=== PATIENT | female | born 1980 | race Caucasian/White ===

== ENCOUNTER 2017-06-10 12:03 | Emergency (ER) | payer BC ==
[2017-06-10] MEDS ORDERED: Sodium Chloride 0.9% 2.5 ML Syringe FLUSH PRN (12:33)
[2017-06-10] MEDS ORDERED: Ondansetron 4 MG/2 ML SDV IVPUSH ONE (12:33)
[2017-06-10] MEDS ORDERED: Sodium Chloride 0.9% 10 ML Syringe FLUSH PRN (12:33)
[2017-06-10] MEDS ORDERED: Sodium Chloride 0.9% 1,000 ML IV ONE ×2 (12:33→14:23)
--- NOTE | 2017-06-10 12:37 | EDM.PDOC ---
ED HPI GENERAL MEDICAL PROBLEM - General Chief Complaint: Abdominal Pain Stated Complaint: flank pain Time Seen by Provider: 06/10/17 12:18 Source of Information: Reports: Patient History Limitations: Reports: No Limitations - History of Present Illness INITIAL COMMENTS - FREE TEXT/NARRATIVE: History of present illness: []Patient started having sharp right flank pain this morning, now rating to right lower quadrant with sweats. Patient took Zofran at home. Review of systems: As per history of present illness and below otherwise all systems reviewed and negative. Past medical history: As per history of present illness and as reviewed below otherwise noncontributory. Surgical history: As per history of present illness and as reviewed below otherwise noncontributory. Social history: No reported history of drug or alcohol abuse. Family history: As per history of present illness and as reviewed below otherwise noncontributory. Physical exam: General: Well developed, well nourished in NAD HEENT: Atraumatic, normocephalic, pupils reactive, negative for conjunctival pallor or scleral icterus, mucous membranes moist, throat clear, neck supple, nontender, trachea midline. Lungs: Clear to auscultation, breath sounds equal bilaterally, chest nontender. Heart: S1S2, regular, negative for clicks, rubs, or JVD. Abdomen: Soft, nondistended, tender upper abdomen and right lower quadrant. Negative for masses or hepatosplenomegaly. Right costovertebral tenderness. Pelvis: Stable nontender. Genitourinary: Deferred. Rectal: Deferred. Extremities: Atraumatic, negative for cords or calf pain. Neurovascular unremarkable. Neuro: Awake, alert, oriented. Cranial nerves II through XII unremarkable. Cerebellum unremarkable. Motor and sensory unremarkable throughout. Exam nonfocal. Diagnostics: [] Therapeutics: [] Impression: [] Plan: [] Definitive disposition and diagnosis as appropriate pending reevaluation and review of above. Right Abdominal Pain Score (Numeric/FACES): 9 - Related Data Allergies Allergy/AdvReac Type Severity Reaction Status Date / Time ciprofloxacin [From Cipro] Allergy Hives Verified 11/16/15 00:38 ciprofloxacin HCl Allergy Hives Verified 11/16/15 00:38 [From Cipro] Home Meds: Home Meds Pantoprazole [ProTONIX] 40 mg PO DAILY 06/25/14 [History] Levonorgestrel [Mirena] 1 unit IUTERINE ONETIME 06/27/14 [History] Levothyroxine [Synthroid] 100 mcg PO ACBREAKFAST 11/16/15 [History] Nebivolol HCl [Bystolic] 20 mg PO DAILY 11/16/15 [History] Acetaminophen [Tylenol Extra Strength] 500 mg PO Q4H PRN #0 tablet 11/18/15 [Rx] Metoclopramide HCl [Reglan] 10 mg PO Q6H PRN #15 tablet 11/18/15 [Rx] Ondansetron [Zofran ODT] 4 mg PO Q4H PRN #30 tab.dis 11/18/15 [Rx] Amphetamine [Adzenys Xr-Odt] 18.8 mg DAILY 06/10/17 [History] Levomilnacipran Hydrochloride [Fetzima] 80 mg PO DAILY 06/10/17 [History] Tamsulosin HCl [Flomax] 0.4 mg PO DAILY #14 cap.er.24h 06/10/17 [Rx] Past Medical History Cardiovascular History: Reports: Hypertension Gastrointestinal History: Reports: GERD Psychiatric History: Reports: Anxiety, Depression Endocrine/Metabolic History: Reports: Hypothyroidism - Past Surgical History HEENT Surgical History: Reports: Oral Surgery GI Surgical History: Reports: Bariatric Procedure, Cholecystectomy Musculoskeletal Surgical History: Reports: Carpal Tunnel Social & Family History - Family History Family Medical History: Noncontributory HEENT: Reports: None Cardiac: Reports: High Cholesterol, Hypertension Respiratory: Reports: None GI: Reports: None : Reports: None OBGYN: Reports: Musculoskeletal: Reports: Osteoarthritis Neurological: Reports: None Psychiatric: Reports: None Endocrine/Metabolic: Reports: Hypothyroidism Hematologic: Reports: None Immunologic: Reports: None Dermatologic: Reports: Psoriasis Oncologic: Reports: Breast, Colon - Tobacco Use Smoking Status *Q: Never Smoker - Alcohol Use Days Per Week of Alcohol Use: 0 Number of Drinks Per Day: 0 Total Drinks Per Week: 0 - Recreational Drug Use Recreational Drug Use: No Drug Use in Last 12 Months: No ED ROS GENERAL - Review of Systems Review Of Systems: See Below (See history of present illness) ED EXAM, GI/ABD - Physical Exam Exam: See Below (See history of present illness) Course - Vital Signs Last Recorded V/S: Last Vital Signs Temp 97.9 F 06/10/17 12:34 Pulse 89 06/10/17 12:34 Resp 18 06/10/17 12:34 BP 149/74 H 06/10/17 12:34 Pulse Ox 100 06/10/17 12:34 - Orders/Labs/Meds Orders: Active Orders 24 hr Category Date Time Status HYDROmorphone [Dilaudid] Med 06/10/17 12:33 Active 0.5 mg IVPUSH Q1H PRN HYDROmorphone [Dilaudid] Med 06/10/17 12:58 Active 0.5 mg IVPUSH Q1H PRN Sodium Chloride 0.9% [Saline Flush] Med 06/10/17 12:33 Active 10 ml FLUSH ASDIRECTED PRN Sodium Chloride 0.9% [Saline Flush] Med 06/10/17 12:33 Active 2.5 ml FLUSH ASDIRECTED PRN Saline Lock Insert [OM.PC] Stat Oth 06/10/17 12:32 Ordered Medication Orders Hydromorphone HCl (Dilaudid) 0.5 mg IVPUSH Q1H PRN PRN Reason: Pain Last Admin: 06/10/17 14:35 Dose: 0.5 mg Admin: 06/10/17 12:48 Dose: 0.5 mg Hydromorphone HCl (Dilaudid) 0.5 mg IVPUSH Q1H PRN PRN Reason: Pain Last Admin: 06/10/17 13:04 Dose: 0.5 mg Sodium Chloride (Saline Flush) 10 ml FLUSH ASDIRECTED PRN PRN Reason: Keep Vein Open Last Admin: 06/10/17 12:53 Dose: 10 ml Sodium Chloride (Saline Flush) 2.5 ml FLUSH ASDIRECTED PRN PRN Reason: Keep Vein Open Last Admin: 06/10/17 12:53 Dose: 2.5 ml Labs: Laboratory Tests 06/10/17 06/10/17 06/10/17 Range/Units 12:49 12:49 13:30 WBC 10.68 (4.0-11.0) K/uL RBC 4.78 (4.30-5.90) M/uL Hgb 14.9 (12.0-16.0) g/dL Hct 44.4 (36.0-46.0) % MCV 92.9 (80.0-98.0) fL MCH 31.2 (27.0-32.0) pg MCHC 33.6 (31.0-37.0) g/dL RDW Std Deviation 42.2 (28.0-62.0) fl RDW Coeff of Curt 12 (11.0-15.0) % Plt Count 300 (150-400) K/uL MPV 10.70 (7.40-12.00) fL Neut % (Auto) 81.6 H (48.0-80.0) % Lymph % (Auto) 12.9 L (16.0-40.0) % [place] % (Auto) 5.1 (0.0-15.0) % Eos % (Auto) 0.2 (0.0-7.0) % Baso % (Auto) 0.2 (0.0-1.5) % Neut # (Auto) 8.7 H (1.4-5.7) K/uL Lymph # (Auto) 1.4 (0.6-2.4) K/uL [place] # (Auto) 0.5 (0.0-0.8) K/uL Eos # (Auto) 0.0 (0.0-0.7) K/uL Baso # (Auto) 0.0 (0.0-0.1) K/uL Nucleated RBC % 0.0 /100WBC Nucleated RBCs # 0 K/uL Sodium 141 (136-146) mmol/L Potassium 4.3 (3.5-5.1) mmol/L Chloride 106 (98-110) mmol/L Carbon Dioxide 24 (21-31) mmol/L BUN 23 (6.0-23.0) mg/dL Creatinine 1.0 (0.6-1.5) mg/dL Est Cr Clr Drug Dosing TNP Estimated GFR (MDRD) > 60.0 ml/min Glucose 122 H (60-110) mg/dL Calcium 9.7 (8.8-10.8) mg/dL Total Bilirubin 0.5 (0.1-1.5) mg/dL AST 22 (5-40) IU/L ALT 33 (8-54) IU/L Alkaline Phosphatase 100 (40-150) Total Protein 7.7 (6.0-8.0) g/dL Albumin 4.8 (3.5-5.0) g/dL Globulin 2.9 (2.0-3.5) g/dL Albumin/Globulin Ratio 1.7 (1.3-2.8) Lipase 10 (7-80) U/L Urine Color Urine Appearance Urine pH (5.0-8.0) Ur Specific Marshall (1.001-1.035) Urine Protein (NEGATIVE) mg/dL Urine Glucose (UA) (NEGATIVE) mg/dL Urine Ketones (NEGATIVE) mg/dL Urine Occult Blood (NEGATIVE) Urine Nitrite (NEGATIVE) Urine Bilirubin (NEGATIVE) Urine Ictotest Urine Urobilinogen (<2.0) EU/dL Ur Leukocyte Esterase (NEGATIVE) Urine RBC (0-2/HPF) Urine WBC (0-5/HPF) Ur Epithelial Cells (NONE-FEW) Urine Bacteria (NEGATIVE) Urine Mucus (NONE-MOD) Urine HCG, Qual NEGATIVE (NEGATIVE) 06/10/17 Range/Units 13:30 WBC (4.0-11.0) K/uL RBC (4.30-5.90) M/uL Hgb (12.0-16.0) g/dL Hct (36.0-46.0) % MCV (80.0-98.0) fL MCH (27.0-32.0) pg MCHC (31.0-37.0) g/dL RDW Std Deviation (28.0-62.0) fl RDW Coeff of Curt (11.0-15.0) % Plt Count (150-400) K/uL MPV (7.40-12.00) fL Neut % (Auto) (48.0-80.0) % Lymph % (Auto) (16.0-40.0) % [place] % (Auto) (0.0-15.0) % Eos % (Auto) (0.0-7.0) % Baso % (Auto) (0.0-1.5) % Neut # (Auto) (1.4-5.7) K/uL Lymph # (Auto) (0.6-2.4) K/uL [place] # (Auto) (0.0-0.8) K/uL Eos # (Auto) (0.0-0.7) K/uL Baso # (Auto) (0.0-0.1) K/uL Nucleated RBC % /100WBC Nucleated RBCs # K/uL Sodium (136-146) mmol/L Potassium (3.5-5.1) mmol/L Chloride (98-110) mmol/L Carbon Dioxide (21-31) mmol/L BUN (6.0-23.0) mg/dL Creatinine (0.6-1.5) mg/dL Est Cr Clr Drug Dosing Estimated GFR (MDRD) ml/min Glucose (60-110) mg/dL Calcium (8.8-10.8) mg/dL Total Bilirubin (0.1-1.5) mg/dL AST (5-40) IU/L ALT (8-54) IU/L Alkaline Phosphatase (40-150) Total Protein (6.0-8.0) g/dL Albumin (3.5-5.0) g/dL Globulin (2.0-3.5) g/dL Albumin/Globulin Ratio (1.3-2.8) Lipase (7-80) U/L Urine Color DARK YELLOW Urine Appearance CLOUDY Urine pH 6.5 (5.0-8.0) Ur Specific [place] 1.025 (1.001-1.035) Urine Protein 100 (NEGATIVE) mg/dL Urine Glucose (UA) NEGATIVE (NEGATIVE) mg/dL Urine Ketones 40 H (NEGATIVE) mg/dL Urine Occult Blood LARGE H (NEGATIVE) Urine Nitrite NEGATIVE (NEGATIVE) Urine Bilirubin SMALL H (NEGATIVE) Urine Ictotest NEGATIVE Urine Urobilinogen 1.0 (<2.0) EU/dL Ur Leukocyte Esterase NEGATIVE (NEGATIVE) Urine RBC 68-76 (0-2/HPF) Urine WBC 0-2 (0-5/HPF) Ur Epithelial Cells MODERATE (NONE-FEW) Urine Bacteria FEW (NEGATIVE) Urine Mucus LIGHT (NONE-MOD) Urine HCG, Qual (NEGATIVE) Meds: Medications Generic Name Dose Route Start Last Admin Trade Name Freq PRN Reason Stop Dose Admin Hydromorphone HCl 0.5 mg 06/10/17 12:33 06/10/17 14:35 Dilaudid IVPUSH 0.5 mg Q1H PRN Administration Pain Hydromorphone HCl 0.5 mg 06/10/17 12:58 06/10/17 13:04 Dilaudid IVPUSH 0.5 mg Q1H PRN Administration Pain Sodium Chloride 10 ml 06/10/17 12:33 06/10/17 12:53 Saline Flush FLUSH 10 ml ASDIRECTED PRN Administration Keep Vein Open Sodium Chloride 2.5 ml 06/10/17 12:33 06/10/17 12:53 Saline Flush FLUSH 2.5 ml ASDIRECTED PRN Administration Keep Vein Open Discontinued Medications Generic Name Dose Route Start Last Admin Trade Name Freq PRN Reason Stop Dose Admin Sodium Chloride 1,000 mls @ 999 mls/hr 06/10/17 12:33 06/10/17 12:48 Normal Saline IV 06/10/17 13:33 999 mls/hr .Bolus ONE Administration Sodium Chloride 1,000 mls @ 999 mls/hr 06/10/17 14:23 06/10/17 14:36 Normal Saline IV 06/10/17 15:23 999 mls/hr .Bolus ONE Administration Ketorolac Tromethamine 30 mg 06/10/17 12:58 06/10/17 13:04 Toradol IVPUSH 06/10/17 12:59 30 mg ONETIME ONE Administration Ondansetron HCl 4 mg 06/10/17 12:33 06/10/17 12:48 Zofran IVPUSH 06/10/17 12:34 4 mg ONETIME ONE Administration Tamsulosin HCl 0.4 mg 06/10/17 14:55 06/10/17 15:18 Flomax PO 06/10/17 14:56 0.4 mg ONETIME ONE Administration Departure - Departure Time of Disposition: 15:47 Disposition: Home, Self-Care 01 Condition: Good Clinical Impression: Ureterolithiasis - Discharge Information Prescriptions: Tamsulosin HCl [Flomax] 0.4 mg PO DAILY #14 cap.er.24h Referrals: Luke Mendoza MD [Primary Care Provider] - Forms: ED Department Discharge Additional Instructions: The following information is given to patients seen in the emergency department who are being discharged to home. This information is to outline your options for follow-up care. We provide all patients seen in our emergency department with a follow-up referral. The need for follow-up, as well as the timing and circumstances, are variable depending upon the specifics of your emergency department visit. If you don't have a primary care physician on staff, we will provide you with a referral. We always advise you to contact your personal physician following an emergency department visit to inform them of the circumstance of the visit and for follow-up with them and/or the need for any referrals to a consulting specialist. The emergency department will also refer you to a specialist when appropriate. This referral assures that you have the opportunity for follow-up care with a specialist. All of these measure are taken in an effort to provide you with optimal care, which includes your follow-up. Under all circumstances we always encourage you to contact your private physician who remains a resource for coordinating your care. When calling for follow-up care, please make the office aware that this follow-up is from your recent emergency room visit. If for any reason you are refused follow-up, please contact the [facility] Emergency Department at and asked to speak to the emergency department charge nurse. Percocet and Flomax as directed [facility] - Urology [address] [place] [id number] - My Orders Last 24 Hours: My Active Orders 06/10/17 12:32 Saline Lock Insert [OM.PC] Stat 06/10/17 12:33 HYDROmorphone [Dilaudid] 0.5 mg IVPUSH Q1H PRN Sodium Chloride 0.9% [Saline Flush] 10 ml FLUSH ASDIRECTED PRN Sodium Chloride 0.9% [Saline Flush] 2.5 ml FLUSH ASDIRECTED PRN 06/10/17 12:58 HYDROmorphone [Dilaudid] 0.5 mg IVPUSH Q1H PRN - Assessment/Plan Last 24 Hours: My Active Orders 06/10/17 12:32 Saline Lock Insert [OM.PC] Stat 06/10/17 12:33 HYDROmorphone [Dilaudid] 0.5 mg IVPUSH Q1H PRN Sodium Chloride 0.9% [Saline Flush] 10 ml FLUSH ASDIRECTED PRN Sodium Chloride 0.9% [Saline Flush] 2.5 ml FLUSH ASDIRECTED PRN 06/10/17 12:58 HYDROmorphone [Dilaudid] 0.5 mg IVPUSH Q1H PRN
[2017-06-10] MEDS: HYDROmorphone 1 MG/ML Syringe IVPUSH PRN ×3 (12:48→16:15)
[2017-06-10] MEDS ORDERED: HYDROmorphone 1 MG/ML Syringe IVPUSH PRN (12:58)
[2017-06-10] MEDS ORDERED: Ketorolac 30 MG/ML SDV IVPUSH ONE (12:58)
[2017-06-10 13:39] LABS: CHLORIDE,CL 106 mmol/L (98-110); SODIUM,NA 141 mmol/L (136-146)
--- NOTE | 2017-06-10 14:53 | CT ---
CT of the abdomen and pelvis without contrast. HISTORY: Pain TECHNIQUE: Axial CT images were obtained of the abdomen and pelvis without contrast. Coronal and sagi ttal reconstructions obtained. FINDINGS: The lung bases are clear, no pleural effusion. Trace focal fatty infiltration near the falciform ligament. The spleen, adrenal glands, and pancreas appear unremarkable for noncontrast examination. Cholecystectomy. There is no bulky retroperitoneal l ymphadenopathy. No abdominal ascites. Postsurgical changes noted secondary to gastric bypass. There is a 4 mm obstructing stone within the proximal right ureter with moderate proximal hydronephro sis. Punctate nonobstructing stone within the midpole of the left kidney. The large and small bowel are normal in caliber without evidence of obstruction. The appendix appears normal. There is no bulky pelvic lymphadenopathy. No free fluid. No free air. The urinary bladder ap pears normal. IUD in place within the uterus. The visualized osseous structures appear normal. IMPRESSION: 1. There is a 4 mm obstructing stone within the proximal right ureter with moderate proximal hydrone phrosis. 2. Punctate nonobstructing left renal stone. 3. Gastric bypass changes and cholecystectomy.
[2017-06-10] MEDS ORDERED: Tamsulosin 0.4 MG Cap.ER PO ONE (14:55)
[2017-06-10 16:38] VITALS: BP 119/82
--- NOTE | 2017-06-10 22:49 | CONS ---
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 Her white blood count is 10.68. Her serum creatinine is 1.0. Serum calcium is normal at 9.7. UA showed microscopic hematuria. No indication of UTI. She had a CT scan of abdomen and pelvis that showed 2 tiny stones of nonobstructive in the left kidney, one is 1 mm and the other one is less than that. The right kidney does not have any stones. The right upper ureter has a 3.7 mm partially obstructive ureteral stone. PHYSICAL EXAMINATION: The patient is alert and oriented. She does not appear to be in pain when I examined her. She has received Dilaudid in the emergency room. IMPRESSION: Right upper ureteral stone. PLAN: Treatment options were discussed with her on that includes watchful waiting to make sure she is comfortable. She can go home on pain medicine and Flomax. Second option, put a stent in and do ESWL later. Third option is do ureteroscopy with or without laser lithotripsy to remove the stone. She will decide what she wants done. HOOD / WADE /[id number]
== END 2017-06-10 16:25 | disposition home or self-care (01) ==
LOC: MW.ED 12:03
DX: N13.2 Hydronephrosis with renal and ureteral calculous obstruction (principal); I10 Essential (primary) hypertension; K21.9 Gastro-esophageal reflux disease without esophagitis; F32.9 Major depressive disorder, single episode, unspecified; E03.9 Hypothyroidism, unspecified; Z79.899 Other long term (current) drug therapy; Z88.1 Allergy status to other antibiotic agents; Z98.84 Bariatric surgery status; Z90.49 Acquired absence of other specified parts of digestive tract
CPT/HCPCS: 36415; 74176; 80053; 81001; 81025; 83690; 85025; 96361; 96374; 96375; 99284; A9270; J1170; J1885; J2405; J7040; 96376; 99285-25

== ENCOUNTER 2017-06-11 09:27 | Day surgery (SDC) | payer BC ==
[2017-06-11] MEDS ORDERED: Ondansetron 4 MG/2 ML SDV ONE (09:56)
[2017-06-11] MEDS ORDERED: Propofol 200 MG/20 ML SDV ONE (09:56)
[2017-06-11] MEDS ORDERED: Midazolam 1 MG/ML 2 ML SDV ONE (09:56)
[2017-06-11] MEDS ORDERED: fentaNYL 250 MCG/5 ML SDV ONE (09:56)
[2017-06-11] MEDS ORDERED: Lidocaine 2% 5 ML SDV ONE (09:56)
--- NOTE | 2017-06-11 10:12 | PCM.PREANE ---
Preanesthetic Assessment - Anesthesia/Transfusion/Family Hx Anesthesia History: Prior Anesthesia Without Reaction Other Type of Anesthesia Reaction Comment: some motion sickness, denies any known problem in past Family History of Anesthesia Reaction: No Transfusion History: No Prior Transfusion(s) Intubation History: Unknown - Review of Systems General: No Symptoms Pulmonary: No Symptoms Cardiovascular: Orthopnea Gastrointestinal: No Symptoms Neurological: No Symptoms Other: Reports: None - Physical Assessment Height: 1.63 m Weight: 64.864 kg ASA Class: 2 Mental Status: Alert & Oriented x3 Airway Class: Mallampati = 2 Dentition: Reports: Normal Dentition Thyro-Mental Finger Breadths: 3 Mouth Opening Finger Breadths: 3 ROM/Head Extension: Full Lungs: Clear to Auscultation, Normal Respiratory Effort Cardiovascular: Regular Rate, Regular Rhythm - Allergies Allergies/Adverse Reactions: Allergies Allergy/AdvReac Type Severity Reaction Status Date / Time ciprofloxacin [From Cipro] Allergy Hives Verified 06/11/17 09:55 ciprofloxacin HCl Allergy Hives Verified 06/11/17 09:55 [From Cipro] - Blood Blood Available: No - Anesthesia Plan Pre-Op Medication Ordered: None - Acknowledgements Anesthesia Type Planned: General Anesthesia Pt an Appropriate Candidate for the Planned Anesthesia: Yes Alternatives and Risks of Anesthesia Discussed w Pt/Guardian: Yes Pt/Guardian Understands and Agrees with Anesthesia Plan: Yes PreAnesthesia Questionnaire HEENT History: Reports: Other (See Below) Other HEENT History: wears glasses Cardiovascular History: Reports: Hypertension Respiratory History: Reports: None Gastrointestinal History: Reports: GERD Psychiatric History: Reports: Anxiety, Depression Endocrine/Metabolic History: Reports: Hypothyroidism - Past Surgical History Head Surgeries/Procedures: Reports: None HEENT Surgical History: Reports: Oral Surgery GI Surgical History: Reports: Bariatric Procedure, Cholecystectomy Musculoskeletal Surgical History: Reports: Carpal Tunnel - SUBSTANCE USE Smoking Status *Q: Never Smoker Second Hand Smoke Exposure: No Days Per Week of Alcohol Use: 0 Number of Drinks Per Day: 0 Total Drinks Per Week: 0 Recreational Drug Use History: No - HOME MEDS Home Medications: Home Meds Pantoprazole [ProTONIX] 40 mg PO DAILY 06/25/14 [History] Levonorgestrel [Mirena] 1 unit IUTERINE ONETIME 06/27/14 [History] Levothyroxine [Synthroid] 100 mcg PO ACBREAKFAST 11/16/15 [History] Nebivolol HCl [Bystolic] 20 mg PO DAILY 11/16/15 [History] Acetaminophen [Tylenol Extra Strength] 500 mg PO Q4H PRN #0 tablet 11/18/15 [Rx] Metoclopramide HCl [Reglan] 10 mg PO Q6H PRN #15 tablet 11/18/15 [Rx] Ondansetron [Zofran ODT] 4 mg PO Q4H PRN #30 tab.dis 11/18/15 [Rx] Amphetamine [Adzenys Xr-Odt] 18.8 mg PO DAILY 06/10/17 [History] Levomilnacipran Hydrochloride [Fetzima] 80 mg PO DAILY 06/10/17 [History] Tamsulosin HCl [Flomax] 0.4 mg PO DAILY #14 cap.er.24h 06/10/17 [Rx] - CURRENT (IN HOUSE) MEDS Current Meds: Current Medications Discontinued Medications Fentanyl (Sublimaze) Confirm Administered Dose 250 mcg .ROUTE .STK-MED ONE Stop: 06/11/17 09:57 Lidocaine (Xylocaine-Mpf 2%) Confirm Administered Dose 5 ml .ROUTE .STK-MED ONE Stop: 06/11/17 09:57 Midazolam HCl (Versed 1 Mg/Ml) Confirm Administered Dose 2 mg .ROUTE .STK-MED ONE Stop: 06/11/17 09:57 Ondansetron HCl (Zofran) Confirm Administered Dose 4 mg .ROUTE .STK-MED ONE Stop: 06/11/17 09:57 Propofol (Diprivan 20 Ml) Confirm Administered Dose 200 mg .ROUTE .STK-MED ONE Stop: 06/11/17 09:57
[2017-06-11] MEDS ORDERED: fentaNYL 100 MCG/2 ML SDV IVPUSH PRN (10:29)
[2017-06-11] MEDS ORDERED: Succinylcholine/Normal Saline 200 MG/10 ML Syringe ONE (10:53)
[2017-06-11] MEDS ORDERED: Rocuronium 10 MG/ML 10 ML Syringe ONE (10:53)
[2017-06-11] MEDS ORDERED: Iopamidol 408 MG/ML 50 ML SDV ONE (11:11)
[2017-06-11] MEDS ORDERED: Ketorolac 30 MG/ML SDV ONE (11:30)
--- NOTE | 2017-06-11 11:53 | OR ---
SURGEON: Farrah Kasper M.D. DATE OF PROCEDURE: 06/11/2017 PREOPERATIVE DIAGNOSIS: Right upper ureteral stone. POSTOPERATIVE DIAGNOSIS: Right lower ureteral stone. OPERATIONS: Cystoscopy, ureteroscopy, and stone removal. DESCRIPTION: Patient was given general anesthesia, placed in dorsal lithotomy position, prepped and draped in sterile drapes. Cystourethroscopy was done that was normal. A guidewire was advanced in the right ureter alongside the stone, which produced an immediate hydronephrotic drip out of the right urinary drainage system. The lower ureter was then dilated using the UroMax II balloon dilator to approximately 15-Croatian. The StorIntervolve rigid ureteroscope was advanced in the right lower ureter alongside the guidewire. The stone was at the junction of middle and lower ureter, was grasped and removed on the first attempt. With that done, the procedure was terminated. The bladder was emptied. The stone was submitted and the patient was moved to recovery room in good condition. HOOD / WADE /[id number]
--- NOTE | 2017-06-11 12:01 | PCM.POSTAN ---
POST ANESTHESIA ASSESSMENT - MENTAL STATUS Mental Status: Alert, Oriented - RESPIRATORY Respiratory Status: Respiratory Rate WNL, Airway Patent, O2 Saturation Stable - CARDIOVASCULAR CV Status: Pulse Rate WNL, Blood Pressure Stable - GASTROINTESTINAL GI Status: No Symptoms - POST OP HYDRATION Hydration Status: Adequate & Stable
[2017-06-11 12:48] VITALS: BP 122/74
--- NOTE | 2017-06-14 10:19 | CR ---
EXAMINATION: Cystoscopy HISTORY: Stone COMPARISON: 06/10/2017 TECHNIQUE: 1 image FINDINGS/IMPRESSION: Operative control films demonstrate a wire projecting over the right renal colle cting system.
== END 2017-06-11 13:05 | disposition home or self-care (01) ==
LOC: MW.SDS 09:27
PROVIDERS: ATTEND Urology
DX: N20.1 Calculus of ureter (principal); I10 Essential (primary) hypertension; K21.9 Gastro-esophageal reflux disease without esophagitis; F41.9 Anxiety disorder, unspecified; F32.9 Major depressive disorder, single episode, unspecified; E03.9 Hypothyroidism, unspecified; Z88.1 Allergy status to other antibiotic agents; Z90.49 Acquired absence of other specified parts of digestive tract; Z79.899 Other long term (current) drug therapy
CPT/HCPCS: 52352; 76000; 81025; C1769; J0690; J1885; J2250; J2405; J3010; Q9966; 00910; 88300; J2704

== ENCOUNTER 2017-11-20 22:41 | Emergency (ER) | payer BC ==
--- NOTE | 2017-11-20 22:46 | EDM.PDOC ---
ED HPI GENERAL MEDICAL PROBLEM - General Stated Complaint: THROWING UP BLOOD Time Seen by Provider: 11/20/17 22:45 Source of Information: Reports: Patient History Limitations: Reports: No Limitations - History of Present Illness INITIAL COMMENTS - FREE TEXT/NARRATIVE: HISTORY AND PHYSICAL: History of present illness: 37-year-old female presenting the emergency department with chief complaint of nausea and vomiting with blood in vomitus with past medical history of gastric bypass. Patient states that she was feeling her normal usual self yesterday until this morning at approximately 05:30 PM she began to have some nausea with vomiting. States that there was a small amount of blood initially in the vomit. She also reported some epigastric pain. She does have a history of gastric bypass 2 years ago and also heartburn. She also reports at 9 AM she had a bowel movement that seemed to have some bright red blood in it. She took Zantac as well as Prilosec and Mylanta which seemed to help some but she continues to have epigastric pain and another episode of nausea with more blood in the vomitus. She does admit to drinking 2 alcoholic drinks the prior evening but does not drink on a regular basis. She denies any other drug use. She currently denies any chest pain, palpitations, shortness breath, syncopal episodes, focal episodes. On exam patient has some mild epigastric tenderness. Abdomen soft nonrigid, no rebound tenderness with positive bowel sounds Review of systems: As per history of present illness and below otherwise all systems reviewed and negative. Past medical history: As per history of present illness and as reviewed below otherwise noncontributory. Surgical history: As per history of present illness and as reviewed below otherwise noncontributory. Social history: No reported history of drug or alcohol abuse. Family history: As per history of present illness and as reviewed below otherwise noncontributory. Physical exam: HEENT: Atraumatic, normocephalic, pupils reactive, negative for conjunctival pallor or scleral icterus, mucous membranes moist, throat clear, neck supple, nontender, trachea midline. Lungs: Clear to auscultation, breath sounds equal bilaterally, chest nontender. Heart: S1S2, regular, negative for clicks, rubs, or JVD. Abdomen: Soft, nondistended, epigastric tenderness on deep palpation. Negative for masses or hepatosplenomegaly. Negative for costovertebral tenderness. Pelvis: Stable nontender. Genitourinary: Deferred. Rectal: Deferred. Extremities: Atraumatic, negative for cords or calf pain. Neurovascular unremarkable. Neuro: Awake, alert, oriented. Cranial nerves II through XII unremarkable. Cerebellum unremarkable. Motor and sensory unremarkable throughout. Exam nonfocal. Diagnostics: CBC, CMP, hCG, lipase, UA/UC, CT abdomen pelvis, blood cultures 2 Therapeutics: Protonix 80 mg IV 1, 1 L normal saline 1, 30 mg Toradol IV 1, 4 mg Zofran IV 1, nothing by mouth Impression: Acute GI bleed Possible SBP Plan: CBC showed leukocytosis of 17,000 blood cultures had been taken and 1 g Rocephin given. CMP as well as lipase and urinalysis were unremarkable. CT of the abdomen and pelvis showed a severe wall thickening present within the Kim- en-Y segment extending from the gastro-jejunostomy 15 cm. There is mild distention noted measuring 3.3 cm. There was possibility of infectious enteritis , Crohn's disease, ischemia possibly to be considered. In addition the appendix was upper limits of normal in size, measuring 6-7 mm in diameter without wall thickening or surrounding inflammatory changes. I did talk to Dr. Horan, surgery, and advised him of this patient. Secondary to the patient's history of Kim-en-Y as well as current clinical status he felt the patient should be transferred to the facility to perform the Kim-en-Y. I did talk to Dr. Mosher , [facility] surgery, who accepted the patient for transfer. Definitive disposition and diagnosis as appropriate pending reevaluation and review of above. abdomen Pain Score (Numeric/FACES): 7 - Related Data Allergies Allergy/AdvReac Type Severity Reaction Status Date / Time ciprofloxacin [From Cipro] Allergy Hives Verified 11/20/17 22:57 ciprofloxacin HCl Allergy Hives Verified 11/20/17 22:57 [From Cipro] Home Meds: Home Meds Pantoprazole [ProTONIX] 40 mg PO DAILY 06/25/14 [History] Levonorgestrel [Mirena] 1 unit IUTERINE ONETIME 06/27/14 [History] Levothyroxine [Synthroid] 100 mcg PO ACBREAKFAST 11/16/15 [History] Nebivolol HCl [Bystolic] 20 mg PO DAILY 11/16/15 [History] Acetaminophen [Tylenol Extra Strength] 500 mg PO Q4H PRN #0 tablet 11/18/15 [Rx] Metoclopramide HCl [Reglan] 10 mg PO Q6H PRN #15 tablet 11/18/15 [Rx] Ondansetron [Zofran ODT] 4 mg PO Q4H PRN #30 tab.dis 11/18/15 [Rx] Amphetamine [Adzenys Xr-Odt] 18.8 mg PO DAILY 06/10/17 [History] Levomilnacipran Hydrochloride [Fetzima] 80 mg PO DAILY 06/10/17 [History] Tamsulosin HCl [Flomax] 0.4 mg PO DAILY #14 cap.er.24h 06/10/17 [Rx] Past Medical History HEENT History: Reports: Other (See Below) Other HEENT History: wears glasses Cardiovascular History: Reports: Hypertension Respiratory History: Reports: None Gastrointestinal History: Reports: GERD Psychiatric History: Reports: Anxiety, Depression Endocrine/Metabolic History: Reports: Hypothyroidism - Past Surgical History Head Surgeries/Procedures: Reports: None HEENT Surgical History: Reports: Oral Surgery GI Surgical History: Reports: Bariatric Procedure, Cholecystectomy Musculoskeletal Surgical History: Reports: Carpal Tunnel Social & Family History - Family History Family Medical History: Noncontributory HEENT: Reports: None Cardiac: Reports: High Cholesterol, Hypertension Respiratory: Reports: None GI: Reports: None : Reports: None OBGYN: Reports: Musculoskeletal: Reports: Osteoarthritis Neurological: Reports: None Psychiatric: Reports: None Endocrine/Metabolic: Reports: Hypothyroidism Hematologic: Reports: None Immunologic: Reports: None Dermatologic: Reports: Psoriasis Oncologic: Reports: Breast, Colon ED ROS GENERAL - Review of Systems Review Of Systems: ROS reveals no pertinent complaints other than HPI. ED EXAM, GENERAL - Physical Exam Exam: See Below Course - Vital Signs Last Recorded V/S: Last Vital Signs Temp 97.8 F 11/20/17 22:41 Pulse 104 H 11/20/17 22:41 Resp 18 11/20/17 22:41 BP 136/101 H 11/20/17 22:41 Pulse Ox 97 11/20/17 22:41 - Orders/Labs/Meds Orders: Active Orders 24 hr Category Date Time Status NPO Now [Nothing per Oral Now Diet] [DIET] Diet 11/21/17 Breakfast Active Abdomen Pelvis w Cont [CT] Stat Exams 11/20/17 23:32 Taken CULTURE BLOOD [BC] Stat Lab 11/21/17 01:36 Ordered CULTURE BLOOD [BC] Stat Lab 11/21/17 01:36 Ordered CULTURE URINE [RM] Stat Lab 11/20/17 23:41 Ordered HCG QUALITATIVE,URINE [URCHEM] Stat Lab 11/20/17 23:41 Ordered UA W/MICROSCOPIC [URIN] Stat Lab 11/20/17 23:41 Ordered Sodium Chloride 0.9% [Saline Flush] Med 11/20/17 23:20 Active 10 ml FLUSH ASDIRECTED PRN Sodium Chloride 0.9% [Saline Flush] Med 11/20/17 23:20 Active 2.5 ml FLUSH ASDIRECTED PRN Sodium Chloride 0.9% [Saline Flush] Med 11/20/17 23:20 Active 2.5 ml FLUSH ASDIRECTED PRN cefTRIAXone [Rocephin in Dextrose,Iso-Osm 1 GM/50 ML] 1 Med 11/21/17 01:32 Active gm Premix Bag 1 bag IV ONETIME Blood Culture x2 Reflex Set [OM.PC] Stat Oth 11/21/17 01:36 Ordered Saline Lock Insert [OM.PC] Stat Oth 11/20/17 23:20 Ordered Medication Orders Ceftriaxone Sodium/Dextrose 1 (gm/ Premix) 50 mls @ 100 mls/hr IV ONETIME ONE Stop: 11/21/17 02:01 Sodium Chloride (Saline Flush) 2.5 ml FLUSH ASDIRECTED PRN PRN Reason: Keep Vein Open Sodium Chloride (Saline Flush) 10 ml FLUSH ASDIRECTED PRN PRN Reason: Keep Vein Open Sodium Chloride (Saline Flush) 2.5 ml FLUSH ASDIRECTED PRN PRN Reason: Keep Vein Open Labs: Laboratory Tests 11/20/17 11/20/17 11/20/17 Range/Units 23:25 23:25 23:41 WBC 16.90 H (4.0-11.0) K/uL RBC 4.89 (4.30-5.90) M/uL Hgb 15.7 (12.0-16.0) g/dL Hct 45.9 (36.0-46.0) % MCV 93.9 (80.0-98.0) fL MCH 32.1 H (27.0-32.0) pg MCHC 34.2 (31.0-37.0) g/dL RDW Std Deviation 43.0 (28.0-62.0) fl RDW Coeff of Curt 13 (11.0-15.0) % Plt Count 235 (150-400) K/uL MPV 10.70 (7.40-12.00) fL Neut % (Auto) 83.4 H (48.0-80.0) % Lymph % (Auto) 9.8 L (16.0-40.0) % [place] % (Auto) 6.5 (0.0-15.0) % Eos % (Auto) 0.2 (0.0-7.0) % Baso % (Auto) 0.1 (0.0-1.5) % Neut # (Auto) 14.1 H (1.4-5.7) K/uL Lymph # (Auto) 1.7 (0.6-2.4) K/uL [place] # (Auto) 1.1 H (0.0-0.8) K/uL Eos # (Auto) 0.0 (0.0-0.7) K/uL Baso # (Auto) 0.0 (0.0-0.1) K/uL Nucleated RBC % 0.0 /100WBC Nucleated RBCs # 0 K/uL Sodium 138 (136-145) mmol/L Potassium 4.1 (3.5-5.1) mmol/L Chloride 102 (98-107) mmol/L Carbon Dioxide 30.2 (21.0-32.0) mmol/L BUN 24 H (7.0-18.0) mg/dL Creatinine 0.8 (0.6-1.0) mg/dL Est Cr Clr Drug Dosing 83.14 mL/min Estimated GFR (MDRD) > 60.0 ml/min Glucose 116 H (74-106) mg/dL Calcium 8.5 (8.5-10.1) mg/dL Total Bilirubin 0.7 (0.2-1.0) mg/dL AST 14 L (15-37) IU/L ALT 23 (14-63) IU/L Alkaline Phosphatase 85 (46-116) U/L Total Protein 6.6 (6.4-8.2) g/dL Albumin 3.4 (3.4-5.0) g/dL Globulin 3.2 (2.0-3.5) g/dL Albumin/Globulin Ratio 1.1 L (1.3-2.8) Lipase 55 L (73-393) U/L Urine Color YELLOW Urine Appearance CLEAR Urine pH 6.0 (5.0-8.0) Ur Specific [place] >= 1.030 (1.001-1.035) Urine Protein NEGATIVE (NEGATIVE) mg/dL Urine Glucose (UA) NEGATIVE (NEGATIVE) mg/dL Urine Ketones 15 H (NEGATIVE) mg/dL Urine Occult Blood TRACE-LYSED (NEGATIVE) Urine Nitrite NEGATIVE (NEGATIVE) Urine Bilirubin NEGATIVE (NEGATIVE) Urine Urobilinogen 0.2 (<2.0) EU/dL Ur Leukocyte Esterase NEGATIVE (NEGATIVE) Urine RBC 0-2 (0-2/HPF) Urine WBC 0-2 (0-5/HPF) Ur Epithelial Cells FEW (NONE-FEW) Urine Bacteria FEW (NEGATIVE) Urine HCG, Qual (NEGATIVE) 11/20/17 Range/Units 23:41 WBC (4.0-11.0) K/uL RBC (4.30-5.90) M/uL Hgb (12.0-16.0) g/dL Hct (36.0-46.0) % MCV (80.0-98.0) fL MCH (27.0-32.0) pg MCHC (31.0-37.0) g/dL RDW Std Deviation (28.0-62.0) fl RDW Coeff of Curt (11.0-15.0) % Plt Count (150-400) K/uL MPV (7.40-12.00) fL Neut % (Auto) (48.0-80.0) % Lymph % (Auto) (16.0-40.0) % [place] % (Auto) (0.0-15.0) % Eos % (Auto) (0.0-7.0) % Baso % (Auto) (0.0-1.5) % Neut # (Auto) (1.4-5.7) K/uL Lymph # (Auto) (0.6-2.4) K/uL [place] # (Auto) (0.0-0.8) K/uL Eos # (Auto) (0.0-0.7) K/uL Baso # (Auto) (0.0-0.1) K/uL Nucleated RBC % /100WBC Nucleated RBCs # K/uL Sodium (136-145) mmol/L Potassium (3.5-5.1) mmol/L Chloride (98-107) mmol/L Carbon Dioxide (21.0-32.0) mmol/L BUN (7.0-18.0) mg/dL Creatinine (0.6-1.0) mg/dL Est Cr Clr Drug Dosing mL/min Estimated GFR (MDRD) ml/min Glucose (74-106) mg/dL Calcium (8.5-10.1) mg/dL Total Bilirubin (0.2-1.0) mg/dL AST (15-37) IU/L ALT (14-63) IU/L Alkaline Phosphatase (46-116) U/L Total Protein (6.4-8.2) g/dL Albumin (3.4-5.0) g/dL Globulin (2.0-3.5) g/dL Albumin/Globulin Ratio (1.3-2.8) Lipase (73-393) U/L Urine Color Urine Appearance Urine pH (5.0-8.0) Ur Specific [place] (1.001-1.035) Urine Protein (NEGATIVE) mg/dL Urine Glucose (UA) (NEGATIVE) mg/dL Urine Ketones (NEGATIVE) mg/dL Urine Occult Blood (NEGATIVE) Urine Nitrite (NEGATIVE) Urine Bilirubin (NEGATIVE) Urine Urobilinogen (<2.0) EU/dL Ur Leukocyte Esterase (NEGATIVE) Urine RBC (0-2/HPF) Urine WBC (0-5/HPF) Ur Epithelial Cells (NONE-FEW) Urine Bacteria (NEGATIVE) Urine HCG, Qual NEGATIVE (NEGATIVE) Meds: Medications Generic Name Dose Route Start Last Admin Trade Name Freq PRN Reason Stop Dose Admin Ceftriaxone Sodium/Dextrose 1 50 mls @ 100 mls/hr 11/21/17 01:32 gm/ Premix IV 11/21/17 02:01 ONETIME ONE Sodium Chloride 2.5 ml 11/20/17 23:20 Saline Flush FLUSH ASDIRECTED PRN Keep Vein Open Sodium Chloride 10 ml 11/20/17 23:20 Saline Flush FLUSH ASDIRECTED PRN Keep Vein Open Sodium Chloride 2.5 ml 11/20/17 23:20 Saline Flush FLUSH ASDIRECTED PRN Keep Vein Open Discontinued Medications Generic Name Dose Route Start Last Admin Trade Name Kaela PRN Reason Stop Dose Admin Sodium Chloride 1,000 mls @ 999 mls/hr 11/20/17 23:20 11/20/17 23:45 Normal Saline IV 11/21/17 00:20 999 mls/hr .Bolus ONE Administration Iopamidol 85 ml 11/21/17 00:33 11/21/17 00:33 Isovue-370 (76%) IVPUSH 11/21/17 00:34 85 ml ONETIME STA Administration Ketorolac Tromethamine 30 mg 11/20/17 23:32 11/20/17 23:46 Toradol IVPUSH 11/20/17 23:33 30 mg ONETIME ONE Administration Ondansetron HCl 4 mg 11/20/17 23:32 11/20/17 23:45 Zofran IVPUSH 11/20/17 23:33 4 mg ONETIME ONE Administration Pantoprazole Sodium 80 mg 11/21/17 00:12 11/21/17 00:51 Protonix Iv IVPUSH 11/21/17 00:13 80 mg .BOLUS ONE Administration Departure - Departure Time of Disposition: 01:46 Disposition: DC/Tfer to Other 70 Condition: Fair Clinical Impression: Spontaneous bacterial peritonitis GI bleed Qualifiers: GI bleed type/associated pathology: unspecified gastrointestinal hemorrhage type Qualified Code(s): K92.2 - Gastrointestinal hemorrhage, unspecified - Discharge Information Referrals: PCP,None [Primary Care Provider] - - My Orders Last 24 Hours: My Active Orders 11/20/17 23:20 Sodium Chloride 0.9% [Saline Flush] 10 ml FLUSH ASDIRECTED PRN Sodium Chloride 0.9% [Saline Flush] 2.5 ml FLUSH ASDIRECTED PRN Sodium Chloride 0.9% [Saline Flush] 2.5 ml FLUSH ASDIRECTED PRN Saline Lock Insert [OM.PC] Stat 11/20/17 23:32 Abdomen Pelvis w Cont [CT] Stat 11/20/17 23:41 CULTURE URINE [RM] Stat HCG QUALITATIVE,URINE [URCHEM] Stat UA W/MICROSCOPIC [URIN] Stat 11/21/17 01:32 cefTRIAXone [Rocephin in Dextrose,Iso-Osm 1 GM/50 ML] 1 gm Premix Bag 1 bag IV ONETIME 11/21/17 01:36 CULTURE BLOOD [BC] Stat CULTURE BLOOD [BC] Stat Blood Culture x2 Reflex Set [OM.PC] Stat 11/21/17 Breakfast NPO Now [Nothing per Oral Now Diet] [DIET] - Assessment/Plan Last 24 Hours: My Active Orders 11/20/17 23:20 Sodium Chloride 0.9% [Saline Flush] 10 ml FLUSH ASDIRECTED PRN Sodium Chloride 0.9% [Saline Flush] 2.5 ml FLUSH ASDIRECTED PRN Sodium Chloride 0.9% [Saline Flush] 2.5 ml FLUSH ASDIRECTED PRN Saline Lock Insert [OM.PC] Stat 11/20/17 23:32 Abdomen Pelvis w Cont [CT] Stat 11/20/17 23:41 CULTURE URINE [RM] Stat HCG QUALITATIVE,URINE [URCHEM] Stat UA W/MICROSCOPIC [URIN] Stat 11/21/17 01:32 cefTRIAXone [Rocephin in Dextrose,Iso-Osm 1 GM/50 ML] 1 gm Premix Bag 1 bag IV ONETIME 11/21/17 01:36 CULTURE BLOOD [BC] Stat CULTURE BLOOD [BC] Stat Blood Culture x2 Reflex Set [OM.PC] Stat 11/21/17 Breakfast NPO Now [Nothing per Oral Now Diet] [DIET]
[2017-11-20] MEDS ORDERED: Sodium Chloride 0.9% 2.5 ML Syringe FLUSH PRN ×2 (23:20)
[2017-11-20] MEDS ORDERED: Sodium Chloride 0.9% 1,000 ML IV ONE (23:20)
[2017-11-20] MEDS ORDERED: Sodium Chloride 0.9% 10 ML Syringe FLUSH PRN (23:20)
[2017-11-20] MEDS ORDERED: Ketorolac 30 MG/ML SDV IVPUSH ONE (23:32)
[2017-11-20] MEDS ORDERED: Ondansetron 4 MG/2 ML SDV IVPUSH ONE (23:32)
[2017-11-21 00:01] LABS: CHLORIDE,CL 102 mmol/L (98-107); SODIUM,NA 138 mmol/L (136-145)
[2017-11-21] MEDS ORDERED: Pantoprazole 40 MG Vial IVPUSH ONE (00:12)
[2017-11-21] MEDS ORDERED: Iopamidol 755 Mg/ML 100 ML Bottle IVPUSH STA (00:33)
[2017-11-21] MEDS ORDERED: cefTRIAXone 1 GM in Premix Bag 1 BAG IV ONE (01:32)
[2017-11-21 01:54] VITALS: BP 114/79
[2017-11-21] MEDS ORDERED: Sodium Chloride 0.9% 1,000 ML IV SCH (02:00)
[2017-11-21] MEDS ORDERED: Morphine 2 MG/ML Syringe IVPUSH ONE ×2 (02:09→02:10)
[2017-11-21] MEDS ORDERED: Ondansetron 4 MG/2 ML SDV IVPUSH ONE (02:52)
--- NOTE | 2017-11-22 13:19 | CT ---
EXAM DATE: 11/20/17 PATIENT'S AGE: 37 Patient: VINCENT STOCKTON Facility: [place], [place] Site . Site : [id number] Study: CT Abdomen/Pelvis w destiney [id number]/22/2018 12:36:12 AM Ordering Physician: Rafael Schaefer Final Report: INDICATION: Epigastric pain with vomiting up blood tonight. Nausea, vomiting. TECHNIQUE: CT Abdomen and pelvis with i.v. contrast. Coronal and sagittal reformats were obtained. CONTRAST: 85 mL Isovue 370 COMPARISON: 06/10/2017 FINDINGS: Lower chest: Unremarkable. Liver: Unremarkable. Spleen: Unremarkable. Pancreas: Unremarkable. Gallbladder: Unremarkable. Kidney: Unremarkable. No kidney or ureteral stones or obstruction seen. Adrenal: Unremarkable. Bowel: Previous antegastric-antecolic gastric bypass noted with Kim-en-Y anastomosis. There is severe wall thickening present within the Kim-en-Y segment extending from the gastro jejunostomy 15 cm. Mild distension of this segment is noted measuring 3.3 cm. The appendix is at the upper limits of normal in size, measuring 6-7 mm in diameter without wall thickening or surrounding inflammatory changes. Vascular: Unremarkable. Lymph: Unremarkable. Peritoneum: Unremarkable. No pneumoperitoneum is seen. Small amount of ascites is present and is likely physiologic in origin. Pelvis: An IUD is present in the uterine cavity near the fundus with no identified complications. There is a dominant follicle or cyst in the right ovary measuring 2 cm. Soft tissue: Unremarkable. Bone: Unremarkable for age. IMPRESSIONS: 1. There is severe wall thickening present within the Kim-en-Y segment extending from the gastro jejunostomy 15 cm. Mild distension is noted measuring 3.3 cm. The possibility of infectious enteritis, Crohn`s disease, ischemia should be considered. 2. The appendix is at the upper limits of normal in size, measuring 6-7 mm in diameter without wall thickening or surrounding inflammatory changes. This is indeterminate by imaging and clinical followup is recommended. Dictated by Nathan Zabala MD @ 11/21/2017 1:15:43 AM Please note that all CT scans at this facility use dose modulation, iterative reconstruction, and/or weight-based dosing when appropriate to reduce radiation dose to as low as reasonably achievable. Dictated by: Nathan Zabala MD @ 11/21/2017 01:15:53 (Electronic Signature) Report Signed by Proxy. [facility]
== END 2017-11-21 03:08 | disposition other institution (70) ==
LOC: MW.ED 22:41
DX: K92.2 Gastrointestinal hemorrhage, unspecified (principal); K65.2 Spontaneous bacterial peritonitis; I10 Essential (primary) hypertension; E03.9 Hypothyroidism, unspecified; Z88.1 Allergy status to other antibiotic agents; Z79.899 Other long term (current) drug therapy
CPT/HCPCS: 36415; 74177; 80053; 81001; 81025; 83690; 85025; 87040; 87086; 96361; 96365; 96375; 96376; 99285; C9113; J0696; J1885; J2270; J2405; J7040; Q9967; 99283